=== PATIENT | male | born 1960 | race Caucasian/White ===

== ENCOUNTER 2021-11-24 17:43 | Outpatient (CLI) | payer OTHER | END 2021-11-24 23:00 | disposition home or self-care (01) | LOC: LAB 17:43 | PROVIDERS: ATTEND Urology | DX: R97.20 Elevated prostate specific antigen [PSA] (principal) ==

== ENCOUNTER 2021-12-31 07:38 | Outpatient (CLI) | payer OTHER | END 2021-12-31 07:52 | disposition home or self-care (01) | LOC: SONOGRAMA 07:38 | PROVIDERS: ATTEND Urology | DX: R97.20 Elevated prostate specific antigen [PSA] (principal) ==